=== PATIENT | female | born 1990 | race Caucasian/White ===

== ENCOUNTER 2016-09-18 12:07 | Emergency (ER) | payer OTHER ==
[~2016-09-18] VITALS: Ht 147.3 cm; Wt 67.1 kg
[2016-09-18 14:40] VITALS: BP 125/84
== END 2016-09-18 14:40 | disposition home or self-care (01) ==
LOC: ED 12:07
DX: S09.8XXA Other specified injuries of head, initial encounter (principal); M54.2 Cervicalgia; R11.2 Nausea with vomiting, unspecified; W22.8XXA Striking against or struck by other objects, initial encounter; Y93.89 Activity, other specified; Y99.8 Other external cause status; Y92.89 Other specified places as the place of occurrence of the external cause
CPT/HCPCS: J1885

== ENCOUNTER 2018-05-30 15:16 | Emergency (ER) | payer OTHER ==
[~2018-05-30] VITALS: Ht 147.3 cm; Wt 65.3 kg
[2018-05-30 15:24] VITALS: Ht 147.3 cm; Wt 65.3 kg
[2018-05-30 17:42] VITALS: BP 120/70
== END 2018-05-30 17:48 | disposition home or self-care (01) ==
LOC: ED 15:16
DX: O20.0 Threatened abortion (principal)